=== PATIENT | female | born 1950 | race Caucasian/White ===

== ENCOUNTER 2018-07-18 20:24 | Emergency (ER) | payer MEDICARE, MEDICAID ==
[2018-07-18 20:32] VITALS: BP 124/62
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
--- NOTE | 2018-07-21 10:53 | UC ---
Course/Dx - Diagnoses Provider Diagnoses: Cerumen impaction Discharge - Sign-Out/Discharge Documenting (check all that apply): Post-Discharge Follow Up All imaging exams completed and their final reports reviewed: No Studies - Discharge Plan Condition: Good Disposition: HOME Patient Education Materials: Cerumen Impaction (ED) Referrals: Elva Richardson MD [Primary Care Provider] - 2 Days Additional Instructions: RETURN TO THE EMERGENCY DEPARTMENT FOR CHANGING OR WORSENING SYMPTOMS - Billing Disposition and Condition Condition: GOOD Disposition: Home
== END 2018-07-18 21:00 | disposition home or self-care (01) ==
LOC: UCEAST 20:24
DX: H61.21 Impacted cerumen, right ear (principal); F32.9 Major depressive disorder, single episode, unspecified; Z79.899 Other long term (current) drug therapy; Z88.8 Allergy status to other drugs, medicaments and biological substances; Z87.891 Personal history of nicotine dependence
CPT/HCPCS: 99213; G0463